=== PATIENT | female | born 1995 | race Caucasian/White ===

== ENCOUNTER 2017-02-20 11:57 | Outpatient (CLI) | payer OTHER ==
[~2017-02-20] VITALS: Ht 162.6 cm; Wt 113.6 kg
[2017-02-20 12:03] VITALS: Ht 162.6 cm; Wt 113.6 kg
[2017-02-20 12:12] VITALS: BP 123/81; PULSE 88; RESP 20
--- NOTE | 2017-02-20 14:54 | RADRPT ---
PROCEDURE: US OB. CLINICAL INDICATION: Size and dates , post dates TECHNIQUE: Multiple sonographic images of the pelvis and gravid uterus were obtained. The images were reviewed on a PACS workstation. COMPARISON: No prior studies are available for comparison. FINDINGS: There is a single viable intrauterine gestation. Cardiac activity is present with 154 beats per min meg. There is a vertex presentation. The placenta is posterior fundal. There is no evidence for an abruption or placenta previa. Measurements were made in order to determine age. The results are as follows: BPD =8.9 cm HC =32.4 cm AC =30.9 cm FL =7.3 cm Estimated gestational age of approximately 36 weeks and 2 days based on ultrasound measurements. Clinical age: 40 weeks and 6 days. The estimated date of delivery is 03/18/17, based on ultrasound measurements. The EFW = 2784 g, <3%, based on LMP age. RPTAT: AA IMPRESSION: Single viable intrauterine gestation of approximately 36 weeks and 2 days based on ultrasound measu rements. Smaller than clinical age by 4.5 weeks. .Diego Robles MD, Date Time Electronically viewed and signed by .Diego Robles MD, on 02/20/2017 14:53 .S/
--- NOTE | 2017-02-20 15:16 | RADRPT ---
PROCEDURE: US biophysical profile. CLINICAL INDICATION: Post dates at 40 weeks 6 days gestational age. TECHNIQUE: Multiple sonographic images of the uterus were obtained. The images were revi ewed on a PACS workstation. COMPARISON: No prior studies are available for comparison. FINDINGS: There is a single live intrauterine gestation. heart rate is 150 beats per minute. The position is cephalic. The placenta is fundal grade III with no abruption or previa. The AUDREY is 8.3 cm. (Normal = 5-20 cm.) Breathing Movement: 2 Gross Body Movement: 2 Tone: 2 Qualitative Amniotic Fluid Volume: 2 TOTAL: 8 IMPRESSION: 1. The biophysical score is 8/8. RPTAT: QQ .Klaus Varela MD, Date Time Electronically viewed and signed by .Klaus Varela MD, on 02/20/2017 15:15 .R/
--- NOTE | 2017-02-22 05:42 | HP ---
DATE OF ADMISSION: 02/20/2017 INDICATIONS: This 21-year-old presents to the triage unit with contractions. The patient states that she is 40 weeks plus; however, has had poor care. There is no documentation in the record. PAST MEDICAL HISTORY: None. PAST SURGICAL HISTORY: None. PHYSICAL EXAMINATION: Vital signs stable. Exam within normal limits. Category NST is reactive. Ultrasound done shows intrauterine at 36 weeks plus. Examination was 1 cm. On repeat examination after approximately 2 hours the patient was still 1 cm. ASSESSMENT: 1. Intrauterine at 36-4/7 weeks. 2. Poor care. 3. Based on her last menstrual period the patient is 40 weeks; however, based on today's ultrasound places her at 36 weeks. The patient was told she must follow up with her [facility] or follow up with the hospital clinic in the next 2-3 days. The patient also instructed to follow up in 2 days for NST. DIAGNOSIS: False labor. Dictated By: Shay Garcia MD /huan/valeria /Document#: [id number]
== END 2017-02-20 17:07 | disposition home or self-care (01) ==
LOC: OBT 11:57 → L-D 11:58 → OBT 17:07
DX: O47.1 False labor at or after 37 completed weeks of gestation (principal); Z3A.40 40 weeks gestation of pregnancy
CPT/HCPCS: 76815; 76818; Z7500; G0463

== ENCOUNTER 2017-03-14 17:49 | Emergency (ER) | payer OTHER ==
[~2017-03-14] VITALS: Ht 162.6 cm; Wt 100.0 kg
[2017-03-14 17:55] VITALS: Ht 162.6 cm; Wt 100.0 kg
[2017-03-14] MEDS ORDERED: IBUP-1542 PO (18:53)
[2017-03-14] MEDS ORDERED: ACET1TAB40 PO (18:53)
[2017-03-14] MEDS ORDERED: OFLO5DRO7 LEFT EAR (18:53)
--- NOTE | 2017-03-14 18:56 | ERD ---
ER Documentation Chief Complaint Date/Time DATE: 03/14/17 TIME: 18:54 Chief Complaint pt bib self with c/o left ear pain since Sat HPI This 21-year-old female presents with left ear pain for the last 3 days. She denies any cough, congestion, bleeding or discharge. She denies any fevers. ROS All systems reviewed and are negative except as per history of present illness. Medications Home Meds Active Scripts Ofloxacin Otic (Ofloxacin Otic) 5 Ml Drops, 5 DROP LEFT EAR BID for 7 Days, #1 BOTTLE Okay to use ophthalmic solution Prov:DAMASO ARCE MD 03/14/17 Acetaminophen with Codeine (Acetaminophen-Cod #3 Tablet) 1 Each Tablet, 1 TAB PO Q6H Y for PAIN, #10 TAB Prov:DAMASO ARCE MD 03/14/17 Ibuprofen* (Motrin*) 600 Mg Tab, 600 MG PO Q6, #15 TAB Prov:DAMASO ARCE MD 03/14/17 Allergies Allergies: Coded Allergies: No Known Allergies (Verified Allergy, Mild, 09/25/14) PMhx/Soc Medical and Surgical Hx: pt denies Medical Hx, pt denies Surgical Hx History of Surgery: No Anesthesia Reaction: No Hx Neurological Disorder: No Hx Respiratory Disorders: No Hx Cardiac Disorders: No Hx Psychiatric Problems: Yes (ATTEMPTED SUICIDE AT AGE OF 13) Hx Miscellaneous Medical Probl: No Hx Alcohol Use: No Hx Substance Use: No Hx Tobacco Use: No Smoking Status: Never smoker Physical Exam Vitals Vital Signs Date Time Temp Pulse Resp B/P Pulse Ox O2 Delivery O2 Flow Rate FiO2 03/14/17 17:55 100.0 81 16 133/69 99 Physical Exam Const: [] Letter, [id number] per Head: Atraumatic Eyes: Normal Conjunctiva ENT: Normal External Ears, Nose and Mouth. Tenderness with passive range of motion of the left external ear and some discharge in inflammation in the external auditory canal. TM appears normal. There is no mastoid tenderness. There is no facial erythema Neck: Full range of motion..~ No meningismus. Resp: Clear to auscultation bilaterally Cardio: Regular rate and rhythm, no murmurs Abd: Soft, non tender, non distended. Normal bowel sounds Skin: No petechiae or rashes Back: No midline or flank tenderness Ext: No cyanosis, or edema Neur: Awake and alert Psych: Normal Mood and Affect Results 24 hrs Current Medications Medications (Trade) Dose Ordered Sig/Gloria Route PRN Reason Start Time Stop Time Status Last Admin Dose Admin Ibuprofen (Motrin) 600 mg ONCE ONCE PO 03/14/17 19:00 03/14/17 19:01 Procedures/MDM Patient presents with signs of external otitis without evidence of malignant otitis externa, mastoiditis, significant facial cellulitis. She will be treated with ofloxacin and ibuprofen and Tylenol No. 3. The patient was stable with no new complaints during the ER course. Clinically, there is no current evidence to suggest meningitis, sepsis, acute abdomen, pneumonia, acute coronary syndrome, pulmonary embolism, or any other emergent condition appearing to require further evaluation or hospitalization. The patient should certainly return for any new or worsening symptoms per the aftercare instructions. They should otherwise follow-up with her primary care doctor for reevaluation this week. Disclaimer: Inadvertent spelling and grammatical errors are likely due to EHR/ dictation software use and do not reflect on the overall quality of patient care. Also, please note that the electronic time recorded on this note does not necessarily reflect the actual time of the patient encounter. Departure Diagnosis: Primary Impression: Otitis externa Otitis externa type: unspecified type Laterality: left Chronicity: acute Qualified Code: H60.502 - Acute otitis externa of left ear, unspecified type Additional Impression: Left ear pain Condition: Stable Patient Instructions: External Ear Infection (Adult) Additional Instructions: Recheck for new or worsening symptoms with primary care doctor. DAMASO ARCE MD Mar 14, 2017 18:56
[2017-03-14] MEDS ORDERED: IBUPROFEN 600 MG TAB PO ONE (19:00)
[2017-03-16] MEDS ORDERED: NPH10OT LEFT EAR (14:25)
== END 2017-03-14 19:22 | disposition home or self-care (01) ==
LOC: FTE 17:49
DX: H60.502 Unspecified acute noninfective otitis externa, left ear (principal)
CPT/HCPCS: Z7502; Z7610; 99283

== ENCOUNTER 2017-03-16 14:02 | Emergency (ER) | END 2017-03-16 15:00 | disposition home or self-care (01) | DX: H92.02 Otalgia, left ear (principal); F41.9 Anxiety disorder, unspecified ==